=== PATIENT | female | born 2000 | race Caucasian/White ===

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

== ENCOUNTER 2021-11-10 22:27 | Outpatient (CLI) | payer MEDICAID, SELFPAY ==
[2021-11-10 22:39] VITALS: BMI 38.7
[2021-11-10 22:40] VITALS: BP 122/73; PULSE 122; TEMP 35.9
[2021-11-10 22:54] VITALS: PULSE 120; O2SAT 100
[2021-11-10 22:59] VITALS: PULSE 110; O2SAT 98
[2021-11-10 23:01] VITALS: BP 117/54; PULSE 113
[2021-11-10 23:04] VITALS: PULSE 110; O2SAT 99
[2021-11-10 23:07] LABS: Actim Prom Negative
[2021-11-10 23:44] LABS: Bilirubin Urine Neg (Negative); Blood Urine Neg (Negative); Glucose Urine UA Norm (Normal); Ketones Urine Negative (Negative); Leukocyte Esterase Urine Trace (Negative); Nitrate Urine Negative (Negative); Protein Urine Neg (Negative); RBC Urine 0-4 /hpf (0-2); Urine Appearance Clear (CLEAR); Urine Color Yellow (Yellow); Urobilinogen Urine Neg (Negative); WBC Urine 0-4 /hpf (0-5); pH Urine 6.5 (5-7)
[2021-11-10 23:45] LABS: Add Urine Culture? No; Bacteria Urine TRACE /hpf; Squamous Epithelial Cell Urine 25-40 /hpf (0-5)
[2021-11-10] MEDS: lactated ringers 1,000 ML 999 ML IV (23:57)
[2021-11-11 00:25] VITALS: BP 109/56; PULSE 97
[2021-11-11 00:39] LABS: Amphetamines Screen Urine Negative (Negative); Barbiturates Screen Urine Negative (Negative); Benzodiazepines Screen Urine Negative (Negative); Cocaine Screen Urine Negative (Negative); Opiate Screen Urine Negative (Negative); PCP Screen Urine Negative (Negative); THC Screen Urine Negative (Negative)
[2021-11-11 01:35] VITALS: BP 109/56; PULSE 97; RESP 18; TEMP 35.9; O2SAT 99
== END 2021-11-11 01:40 | disposition home or self-care (01) ==
LOC: OPOB 22:29 → OBGYN 22:30
PROVIDERS: PCP Nurse Practitioner Family; Visit Provider Obstetrics & Gynecology
DX: O26.899 Other specified pregnancy related conditions, unspecified trimester (principal); Z3A.00 Weeks of gestation of pregnancy not specified; N89.8 Other specified noninflammatory disorders of vagina
CPT/HCPCS: 80306; 81001; 84112

== ENCOUNTER → 2022-11-19 14:19 | Outpatient (BNVA) | payer MEDICAID, SELFPAY | PROVIDERS: PCP Nurse Practitioner Family; Visit Provider Nurse Practitioner Family | DX: R50.9 Fever, unspecified (principal); Z20.822 Contact with and (suspected) exposure to COVID-19 | CPT/HCPCS: 87426 ==